=== PATIENT | male | born 1935 | race Caucasian/White ===

== ENCOUNTER 2022-08-27 09:55 | Emergency (ER) | payer MEDICARE, SELFPAY ==
--- NOTE | ~2022-08-27 | XR_ITS ---
EXAMINATION: XR lumbar spine 2-3V DATE: 08/27/2022 10:41 INDICATION: Low back pain. Fall. TECHNIQUE: 3 views of lumbar spine were obtained. COMPARISON: None. FINDINGS: There is 8 degrees dextrocurvature of thoracolumbar spine. Vertebral body heights are jonnathan l. There is mildly decreased disc height at L3-L4. There are endplate osteophytes at most levels. The re is multilevel mild to moderate facet joint osteoarthritis. There is a stent graft in abdominal aor ta and the common iliac arteries. IMPRESSION: 1. Mild lumbar spondylosis. Reviewed, dictated and finalized at location B. IMPRESSION: 1. Mild lumbar spondylosis.
--- NOTE | ~2022-08-27 | XR_ITS ---
EXAMINATION: XR hip LT min 3V w AP pelvis, XR sacrum coccyx min 2V DATE: 08/27/2022 10:41 INDICATION: Left hip and low back pain post fall TECHNIQUE: 1. Anteroposterior view of the pelvis and anteroposterior, frog leg and cross-table lateral views of the left hip were obtained. 2. AP, angled AP and lateral views of the sacrum and coccyx were obtained. COMPARISON: None. FINDINGS: Diffuse osteopenia which which decreases sensitivity for nondisplaced fracture in the sacrum and cocc yx. Bone alignment is normal. No fracture. Sacral arches are intact. Bilateral hip joint spaces are r elatively preserved. Mild bilateral sacroiliac osteoarthritis. Mild lower lumbar spondylosis. Aortobi iliac stent grafting. Atherosclerotic calcifications and surgical clips in the bilateral inguinal reg ions. IMPRESSION: 1. Mild lower lumbar spondylosis and mild bilateral sacroiliac osteoarthritis. No acute osseous abnor mality. Reviewed, dictated and finalized at location A. IMPRESSION: 1. Mild lower lumbar spondylosis and mild bilateral sacroiliac osteoarthritis. No acute osseous abnormality.
[2022-08-27 09:49] VITALS: BP 155/101; PULSE 81; RESP 22; TEMP 36.7; O2SAT 98
[2022-08-27 10:01] VITALS: BP 139/86; PULSE 80; RESP 27; O2SAT 99
--- NOTE | 2022-08-27 10:16 | ED.FALL ---
HPI - Fall General Chief Complaint: Fall Stated Complaint: fall, left hip & tailbone pain Time Seen by Provider: 08/27/22 09:56 History of Present Illness HPI Narrative: 87-year-old male presents emergency room for evaluation of injury sustained in ground-level fall. Patient states he fell last night while walking around his place of residence. Patient normally uses a cane, states that he missed stepped and fell on his left hip and lower back. Patient states he was ambulatory after the fall. Patient denies a a head injury. Denies any LOC or altered mental status. Denies any weakness or dizziness prior to the fall Related Data Home Medications Medication Instructions Recorded Confirmed aspirin [Adult Aspirin Regimen] PO 02/01/22 atorvastatin PO 02/01/22 carvedilol PO 02/01/22 donepezil PO 02/01/22 levothyroxine PO 02/01/22 memantine PO 02/01/22 mirtazapine PO 02/01/22 paroxetine HCl PO 02/01/22 quetiapine 25 mg tablet mg 08/27/22 Allergies Allergy/AdvReac Type Severity Reaction Status Date / Time No Known Allergies Allergy Verified 08/27/22 10:00 Review of Systems Review of Systems: CONSTITUTIONAL: Denies fever, chills, or sweats. EYES: Denies visual changes, redness, or discharge. ENT: Denies rhinorrhea, congestion, sore throat, or otalgia. CARDIOVASCULAR: Denies chest pain, palpitations, or edema. RESPIRATORY: Denies cough or dyspnea. GASTROINTESTINAL: Denies abdominal pain, nausea, vomiting, or diarrhea. GENITOURINARY: Denies dysuria or hematuria. SKIN: Denies rash or itching. MUSCULOSKELETAL: Reports low back pain and left pain NEUROLOGIC: Denies headache, numbness, dizziness, or weakness. PSYCHIATRIC: Denies anxiety or depression. [facility] Past Medical History Medical History Alzheimer's dementia COPD (chronic obstructive pulmonary disease) Exam Narrative: GENERAL: Well-appearing, well-nourished, no physical limitations, and in no acute distress. HEAD: Normocephalic, atraumatic. EYES: Conjunctivae normal, PERRLA and EOMI. CHEST: Clear to auscultation. No respiratory distress. No wheezes rales or rhonchi. No tenderness. HEART: Regular rate and rhythm. No murmur heard. Normal peripheral pulses. BACK: No CVA tenderness; No cervical/thoracic/lumbar tenderness, step-offs, bony abnormality; FROM EXTREMITIES: Left hip: Tenderness over the greater trochanter, normal range of motion. No shortening or internal rotation noted. No edema. No clubbing or cyanosis SKIN: Warm, dry, no rash. No noted wounds NEURO: No focal deficits. Alert and oriented x3. MAEW. CN's II-XI intact bilaterally, PSYCH: Cooperative. Normal mood and affect. Course Vital Signs Vital signs: Vital Signs Temperature 36.7 C 08/27/22 09:49 Pulse Rate 81 08/27/22 09:49 Respiratory Rate 22 H 08/27/22 09:49 Blood Pressure 155/101 H 08/27/22 09:49 Pulse Oximetry 98 08/27/22 09:49 Oxygen Delivery Room Air 08/27/22 09:49 Temperature 36.7 C 08/27/22 09:49 Pulse Rate 80 08/27/22 10:01 Respiratory Rate 27 H 08/27/22 10:01 Blood Pressure 139/86 08/27/22 10:01 Pulse Oximetry 99 08/27/22 10:01 Oxygen Delivery Room Air 08/27/22 09:49 MDM - Fall Imaging Data Radiologist's impression: Impressions Lumbar Spine X-Ray 08/27/22 10:47 IMPRESSION: 1. Mild lumbar spondylosis. Hip/Pelvis X-Ray 08/27/22 10:55 IMPRESSION: 1. Mild lower lumbar spondylosis and mild bilateral sacroiliac osteoarthritis. No acute osseous abnormality. Sacrum and Coccyx X-Ray 08/27/22 10:55 IMPRESSION: 1. Mild lower lumbar spondylosis and mild bilateral sacroiliac osteoarthritis. No acute osseous abnormality. Discharge Plan Discharge Clinical Impression: Contusion of hip, left, Low back pain, Fall with injury Patient Disposition: Home, Self-Care Condition: Stable Instructions: Antibiotic Form, Contusion in Adults (ED) A
[2022-08-27 11:09] VITALS: BP 126/83; PULSE 85; RESP 24; O2SAT 97
[2022-08-27 11:45] VITALS: BP 125/83; PULSE 90; RESP 18; O2SAT 99
== END 2022-08-27 11:46 ==
PROVIDERS: Emergency Provider Nurse Practitioner Family; PCP Family Medicine
DX: S70.02XA Contusion of left hip, initial encounter (principal); S39.92XA Unspecified injury of lower back, initial encounter; G30.9 Alzheimer's disease, unspecified; F02.80 Dementia in other diseases classified elsewhere, unspecified severity, without behavioral disturbance, psychotic disturbance, mood disturbance, and anxiety; J44.9 Chronic obstructive pulmonary disease, unspecified; M47.816 Spondylosis without myelopathy or radiculopathy, lumbar region; M46.1 Sacroiliitis, not elsewhere classified; W01.0XXA Fall on same level from slipping, tripping and stumbling without subsequent striking against object, initial encounter
CPT/HCPCS: 72100; 72220; 73502; 99284

== ENCOUNTER 2023-02-21 13:49 | Outpatient (NON) | payer MEDICARE, SELFPAY | END 2023-02-21 13:50 | disposition home or self-care (01) | LOC: ANHLAB 13:49 | PROVIDERS: PCP Family Medicine; Visit Provider Nurse Practitioner | DX: C44.41 Basal cell carcinoma of skin of scalp and neck (principal) | CPT/HCPCS: 88305; 88331; 88332 ==

== ENCOUNTER 2023-08-22 22:40 | Emergency (ER) | payer MEDICARE, SELFPAY ==
[2023-08-22 22:40] VITALS: BP 171/96; PULSE 62; RESP 21; TEMP 36.6; O2SAT 97
--- NOTE | 2023-08-22 23:42 | ECG_ITS ---
Measurements Intervals [place] Rate: 71 P: 60 MS: 222 QRS: -7 QRSD: 109 T: 70 QT: 400 QTc: 435 Interpretive Statements SINUS RHYTHM WITH FIRST DEGREE AV BLOCK WITH OCCASIONAL SUPRAVENTRICULAR PREMATURE COMPLEXES NONSPECIFIC T-WAVE ABNORMALITY NO PREVIOUS ECG AVAILABLE FOR COMPARISON Electronically Signed On 08-23-2023 12:18:25 CDT by Karine Fiore M.D.
[2023-08-23 00:16] VITALS: PULSE 60
[2023-08-23 00:17] LABS: Basophils Percent Auto 0.3 % (0.2-1.2); Eosinophils Absolute Auto 0.2 K/mm3 (0-0.3); Eosinophils Percent Auto 3.4 % (0-4.4); Hematocrit 36.2 % (42.0-52.0); Hemoglobin 11.3 g/dL (14.0-18.0); Immature Granulocyte Absolute 0.05 K/mm3 (0.00-0.031); Immature Granulocyte Percent A 0.8 % (0-0.5); Lymphocytes Absolute Auto 1.47 K/mm3 (0.9-3.2); Lymphocytes Percent Auto 23.6 % (18.3-44.2); Mean Corpuscular HGB Conc 31.2 g/dl (32-36); Mean Corpuscular Hemoglobin 28.5 pg (26-34); Mean Corpuscular Volume 91.4 fl (80-100); Mean Platelet Volume 8.6 fl (7.4-10.4); Monocytes Absolute Auto 0.7 K/mm3 (0.1-0.6); Monocytes Percent Auto 10.7 % (2.6-8.5); Neutrophils Absolute Auto 3.8 K/mm3 (1.3-6.7); Neutrophils Percent Auto 61.2 % (45.5-73.1); Platelet Count Result 189 k/mm3 (150-375); Red Blood Count 3.96 M/mm3 (4.6-6.20); Red Cell Distribution Width 14.9 % (11.5-14.5); White Blood Count 6.2 K/mm3 (4.5-10.0)
[2023-08-23 00:27] LABS: Alanine Aminotransferase 17 U/L (6-50); Albumin Level 3.6 g/dL (3.5-5.1); Alkaline Phosphatase 93 U/L (38-126); Anion Gap 5 mmol/L (8-16); Aspartate Amino Transferase 25 U/L (17-59); Bilirubin,Total 0.4 mg/dL (0.2-1.3); Blood Urea Nitrogen 22 mg/dL (9-20); Calcium 8.3 mg/dL (8.4-10.2); Carbon Dioxide 28 mmol/L (22-30); Chloride 104 mmol/L (98-107); Estimated CRCL calculation 36 ml/min; Estimated Glomerular Filt Rate > 60; Glucose 109 mg/dL (65-110); Potassium 4.2 mmol/L (3.4-5.0); Sodium 137 mmol/L (137-145)
[2023-08-23 00:30] LABS: Prothrombin Time 13.1 Seconds (11.1-14.7)
[2023-08-23 00:31] LABS: Partial Thromboplastin Time 30.8 SECONDS (22.3-36.8)
--- NOTE | 2023-08-23 01:33 | ED.GENADULT ---
HPI - General Adult General Chief complaint: Weakness Stated complaint: falls Time Seen by Provider: 08/22/23 22:47 History of Present Illness HPI narrative: Patient brought to the emergency department by EMS. At baseline patient has dementia and lives at a nursing facility. Family are concerned the patient was not acting like himself. However the long term staff state he has not been any different than normal. Patient is alert and answers all of my questions. Denies any complaints. States he is unsure why he is in the emergency department. He is pleasantly confused at times. Related Data Home Medications Medication Instructions Recorded Confirmed aspirin [Adult Aspirin Regimen] PO 02/01/22 atorvastatin PO 02/01/22 carvedilol PO 02/01/22 donepezil PO 02/01/22 levothyroxine PO 02/01/22 memantine PO 02/01/22 mirtazapine PO 02/01/22 paroxetine HCl PO 02/01/22 quetiapine 25 mg tablet mg 08/27/22 Allergies Allergy/AdvReac Type Severity Reaction Status Date / Time No Known Allergies Allergy Verified 08/27/22 10:00 Review of Systems Review of Systems: Review of systems negative except what is documented in the HPI [facility] Past Medical History Medical History Alzheimer's dementia COPD (chronic obstructive pulmonary disease) Exam Narrative: GENERAL: Well-appearing, well-nourished, and in no acute distress. HEAD: Normocephalic, atraumatic. EYES: PERRLA and EOMI. ENT: Nares clear, no rhinorrhea or epistaxis. Mucous membranes moist. NECK: Supple. CHEST: Clear to auscultation. No respiratory distress. HEART: Regular rate and rhythm. ABDOMEN: Soft, nontender, nondistended. EXTREMITIES: Normal range of motion. No edema. SKIN: Warm, dry, no rash. NEURO: No focal deficits. Alert and oriented x3. PSYCH: Normal mood and affect. Course Course Emergency Course: Work-up including labs unremarkable. Vital signs stable with mild hypertension. U/A pending. Vital Signs Vital signs: Vital Signs Temperature 36.6 C 08/22/23 22:40 Pulse Rate 62 08/22/23 22:40 Respiratory Rate 21 H 08/22/23 22:40 Blood Pressure 171/96 H 08/22/23 22:40 Pulse Oximetry 97 08/22/23 22:40 Oxygen Delivery Room Air 08/22/23 22:40 Temperature 36.6 C 08/22/23 22:40 Pulse Rate 60 08/23/23 00:16 Respiratory Rate 21 H 08/22/23 22:40 Blood Pressure 171/96 H 08/22/23 22:40 Pulse Oximetry 97 08/22/23 22:40 Oxygen Delivery Room Air 08/22/23 22:40 Medical Decision Making MDM Narrative Medical decision making narrative: 2:36 AM patient alert and oriented. Eating a sandwich. Work-up grossly unremarkable. Vital signs stable. Will DC back to nursing facility Vital Signs Vital Signs: Vital Signs Temperature 36.6 C 08/22/23 22:40 Pulse Rate 62 08/22/23 22:40 Respiratory Rate 21 H 08/22/23 22:40 Blood Pressure 171/96 H 08/22/23 22:40 Pulse Oximetry 97 08/22/23 22:40 Oxygen Delivery Room Air 08/22/23 22:40 Temperature 36.6 C 08/22/23 22:40 Pulse Rate 60 08/23/23 00:16 Respiratory Rate 21 H 08/22/23 22:40 Blood Pressure 171/96 H 08/22/23 22:40 Pulse Oximetry 97 08/22/23 22:40 Oxygen Delivery Room Air 08/22/23 22:40 Lab Data 08/23/23 00:02 08/23/23 00:02 Labs: Lab Results 08/23/23 08/23/23 Range/Units 00:02 01:29 WBC 6.2 (4.5-10.0) K/mm3 RBC 3.96 L (4.6-6.20) M/mm3 Hgb 11.3 L (14.0-18.0) g/dL Hct 36.2 L (42.0-52.0) % MCV 91.4 (80-100) fl MCH 28.5 (26-34) pg MCHC 31.2 L (32-36) g/dl RDW 14.9 H (11.5-14.5) % Plt Count 189 (150-375) k/mm3 MPV 8.6 (7.4-10.4) fl Immature Gran % (Auto) 0.8 H (0-0.5) % Neut % (Auto) 61.2 (45.5-73.1) % Lymph % (Auto) 23.6 (18.3-44.2) % [place] % (Auto) 10.7 H (2.6-8.5) % Eos % (Auto) 3.4 (0-4.4) % Baso % (Auto) 0.3 (0.2-1.2) % Lymph # (Auto) 1.47
[2023-08-23 01:40] LABS: Appearance Urine Cloudy (Clear); Bacteria Urine None Seen /hpf; Bilirubin Urine Negative (Negative); Blood Urine Negative (Negative); Color Urine Yellow (Yellow); Glucose Urine UA Negative (Negative); Ketones Urine Negative (Negative); Leukocyte Esterase Ur Negative LEU/UL (Negative); Nitrate Urine Negative (Negative); Non Pathogenic Casts 0-2; Protein Urine Negative (Negative); RBC Urine 0-2 /hpf (0-2); Specific Grav Ur 1.013 (1.001-1.035); Squamous Epithelial Cell Urine None seen /hpf (Few); Urobilinogen Urine 0.2 mg/dL (<2.0); WBC Urine 0-5 /hpf; pH Urine 7.5 (5.0-9.0)
[2023-08-23 01:43] LABS: Add Urine Microscopic? YES
[2023-08-23 02:02] VITALS: BP 163/86; PULSE 69; RESP 20; O2SAT 96
[2023-08-23 03:17] VITALS: BP 168/92; PULSE 70; RESP 24
== END 2023-08-23 03:54 ==
PROVIDERS: Emergency Provider Emergency Medicine; PCP Family Medicine
DX: R41.82 Altered mental status, unspecified (principal); G30.9 Alzheimer's disease, unspecified; F02.80 Dementia in other diseases classified elsewhere, unspecified severity, without behavioral disturbance, psychotic disturbance, mood disturbance, and anxiety; J44.9 Chronic obstructive pulmonary disease, unspecified; Z79.82 Long term (current) use of aspirin; I44.0 Atrioventricular block, first degree; I49.1 Atrial premature depolarization; R94.31 Abnormal electrocardiogram [ECG] [EKG]
CPT/HCPCS: 36415; 80053; 81001; 85025; 85610; 85730; 93005; 99284